=== PATIENT | male | born 1945 | race Caucasian/White ===

== ENCOUNTER 2018-08-13 10:46 | Emergency (ER) | payer OTHER, MEDICARE ==
[2018-08-13] MEDS ORDERED: ASPIRIN 81 MG PO STA (11:32)
--- NOTE | 2018-08-13 11:36 | ED ---
Chest Pain HPI - General Chief Complaint: Chest Pain Stated Complaint: dizziness Time Seen by Provider: 08/13/18 11:05 Source: patient, EMS, RN notes reviewed Mode of arrival: EMS Limitations: no limitations - History of Present Illness Initial Comments: 72-year-old male presents emergency Department from [facility] for abnormal EKG. Patient states he has no symptoms at this time. Patient states he was there for presurgical clearance. Patient states that they told him his EKG showed some abnormality's. Patient denies chest pain, shortness breath, headache, dizziness, nausea, vomiting. Patient states that he is a former smoker no history of , hypertension or diabetes. Patient states that he was told to 1991 that he had a IN but states he has had no stenting did have a heart cath at that time. Patient does take Lipitor for hyperlipidemia - Related Data Home Medications Medication Instructions Recorded Confirmed Atorvastatin [Lipitor] 10 mg PO HS 08/13/18 08/13/18 RX: Omeprazole 20 mg PO BID 08/13/18 08/13/18 Allergies Allergy/AdvReac Type Severity Reaction Status Date / Time Sulfa (Sulfonamide Allergy Unknown Verified 08/13/18 11:41 Antibiotics) Review of Systems ROS Statement: Those systems with pertinent positive or pertinent negative responses have been documented in the HPI. ROS Other: All systems not noted in ROS Statement are negative. Past Medical History Additional Past Medical History / Comment(s): neck cancer History of Any Multi-Drug Resistant Organisms: None Reported Past Surgical History: Heart Catheterization Additional Past Surgical History / Comment(s): cancer from neck removed, chemo and radiation Past Psychological History: No Psychological Hx Reported Smoking Status: Former smoker Past Alcohol Use History: Occasional Past Drug Use History: None Reported General Exam Limitations: no limitations General appearance: alert, in no apparent distress Head exam: Present: atraumatic, normocephalic, normal inspection Neck exam: Present: normal inspection. Absent: tenderness, meningismus, lymphadenopathy Respiratory exam: Present: normal lung sounds bilaterally. Absent: respiratory distress, wheezes, rales, rhonchi, stridor Cardiovascular Exam: Present: regular rate, normal rhythm, normal heart sounds. Absent: systolic murmur, diastolic murmur, rubs, gallop, clicks Course Vital Signs 08/13/18 08/13/18 08/13/18 10:56 11:05 11:30 Temperature 97.7 F Pulse Rate 66 66 59 L Respiratory 18 18 17 Rate Blood Pressure 183/100 168/97 165/91 O2 Sat by Pulse 96 97 97 Oximetry 08/13/18 08/13/18 08/13/18 11:40 11:50 12:00 Temperature Pulse Rate 65 60 Respiratory 18 18 Rate Blood Pressure 172/96 172/96 172/96 O2 Sat by Pulse 97 96 Oximetry 08/13/18 08/13/18 08/13/18 12:10 12:20 12:30 Temperature Pulse Rate 58 L 59 L 54 L Respiratory 16 18 18 Rate Blood Pressure 152/102 152/102 152/102 O2 Sat by Pulse 96 96 96 Oximetry 08/13/18 12:40 Temperature Pulse Rate 58 L Respiratory 16 Rate Blood Pressure 158/86 O2 Sat by Pulse 94 L Oximetry - Reevaluation(s) Reevaluation #1: 08/13/18 11:35 EKG was obtained cardiology is called Chest Pain MDM - MDM 72-year-old male presents emergency department for abnormal EKG. This is found at [facility]. Patient was sent emergency from via EMS. Patient had lab work, EKG, chest x-ray all unremarkable. EKG was sent to cardiology Dr. House did review it and felt that this was caused by early repolarization. Patient will be discharged at this time there is no need for admission or further cardiac workup. Disposition Clinical Impression: Electrocardiogram showing no acute ischemic changes Narrative: Early repolarization Disposition: HOME SELF-CARE Condition: Stable Instructions: Chest Pain (ED) Additional Instructions: Please return to the Emergency Department if symptoms worsen or any other concerns. Is patient prescribed a controlled substance at d/c from ED?: No Referrals: [facility] [Primary Care Provider] - 1-2 days Willian House MD [STAFF PHYSICIAN] - 1-2 days Time of Disposition: 13:28
[2018-08-13 12:08] LABS: Basophils % (A) 1 %; Eosinophils # (A) 0.3 k/uL (0-0.7); Eosinophils % (A) 5 %; HCT 48.8 % (39.0-53.0); HGB 16.5 gm/dL (13.0-17.5); Lymphocytes # (A) 0.8 k/uL (1.0-4.8); Lymphocytes % (A) 17 %; MCH 28.6 pg (25.0-35.0); MCHC 33.9 g/dL (31.0-37.0); MCV 84.3 fL (80.0-100.0); Mean Platelet Volume 8.7; Monocytes # (A) 0.3 k/uL (0-1.0); Monocytes % (A) 6 %; Neutrophils # (A) 3.4 k/uL (1.3-7.7); Neutrophils % (A) 70 %; Platelet Count 123 k/uL (150-450); RBC 5.79 m/uL (4.30-5.90); RDW 13.2 % (11.5-15.5); WBC 4.9 k/uL (3.8-10.6)
--- NOTE | 2018-08-13 12:18 | XR ---
EXAMINATION TYPE: XR chest 2V DATE OF EXAM: 08/13/2018 COMPARISON: NONE HISTORY: Shortness of breath and prior abnormal EKG. TECHNIQUE: Frontal and lateral views of the chest are obtained. FINDINGS: There is no focal air space opacity, pleural effusion, or pneumothorax seen. The cardiac silhouette size is within normal limits. The osseous structures are intact. Very minimal degenerati ve changes of the thoracic spine are noted. IMPRESSION: No acute cardiopulmonary process.
[2018-08-13 12:24] LABS: ALT 19 U/L (21-72); AST 31 U/L (17-59); Albumin 3.9 g/dL (3.5-5.0); Alkaline Phosphatase 65 U/L (38-126); Anion Gap 7 mmol/L; Blood Urea Nitrogen 15 mg/dL (9-20); Calcium 10.2 mg/dL (8.4-10.2); Carbon Dioxide 27 mmol/L (22-30); Chloride 106 mmol/L (98-107); Glucose 123 mg/dL (74-99); Magnesium 1.9 mg/dL (1.6-2.3); Sodium 140 mmol/L (137-145); Total Bilirubin 1.2 mg/dL (0.2-1.3)
[2018-08-13 12:30] LABS: INR 1.1 (<1.2); Prothrombin Time 10.3 sec (9.0-12.0)
[2018-08-13 12:34] LABS: Potassium 5.2 mmol/L (3.5-5.1)
[2018-08-13 12:46] LABS: Creatine Kinase 46 U/L (55-170)
[2018-08-13 13:00] LABS: Creatine Kinase MB 1.6 ng/mL (0.0-2.4); Troponin I <0.012 ng/mL (0.000-0.034)
[2018-08-13 13:49] VITALS: BP 154/84; PULSE 61; RESP 18; TEMP 98.4
== END 2018-08-13 13:49 | disposition home or self-care (01) ==
LOC: EC 10:46
DX: R07.9 Chest pain, unspecified (principal); R42 Dizziness and giddiness; E78.5 Hyperlipidemia, unspecified; I25.2 Old myocardial infarction; Z85.89 Personal history of malignant neoplasm of other organs and systems; Z92.21 Personal history of antineoplastic chemotherapy; Z95.818 Presence of other cardiac implants and grafts; Z87.891 Personal history of nicotine dependence; Z79.899 Other long term (current) drug therapy; Z88.2 Allergy status to sulfonamides
CPT/HCPCS: 36415; 71046; 80053; 82550; 82553; 83735; 84484; 85025; 85610; 85730; 93005; 99285

== ENCOUNTER 2021-08-23 07:38 | Day surgery (SDC) | payer OTHER ==
[2021-08-21 15:58] VITALS: BMI 24.0
[~2021-08-23 07:38] MED LIST: LACTATED RINGERS 1,000 ML IV SCH; LIDOCAINE 1% (10MG/ML) FOR IV START INTRADERMA PRN
[2021-08-23] MEDS ORDERED: LIDOCAINE 1% INJ 10MG/ML (20 ML MDV) ONE (08:39)
[2021-08-23] MEDS ORDERED: PROPOFOL 10 MG/ML 20 ML VIAL IV ONE (08:39)
[2021-08-23 08:40] LABS: Glucose,Whole Blood 120 mg/dL (75-99)
[2021-08-23 08:41] VITALS: PULSE 64; TEMP 97.9
--- NOTE | 2021-08-23 08:56 | P.PCN ---
Date of Procedure: 08/23/21 Procedure(s) Performed: BRIEF HISTORY: Patient is a 75-year-old pleasant male scheduled for an elective colonoscopy as a part of evaluation of positive cologuard PROCEDURE PERFORMED: Colonoscopy snare polypectomy. PREOPERATIVE DIAGNOSIS: Positive cologuard. IV sedation per Anesthesia. PROCEDURE: After informed consent was obtained, the patient, was brought into the endoscopy unit. IV sedation was administered by Anesthesia under continuous monitoring. Digital rectal examination was normal. Initially the Olympus CF-160 flexible video colonoscope was then inserted in the rectum, gradually advanced into the cecum without any difficulty. Careful examination was performed as the scope was gradually being withdrawn. Ileocecal valve and the appendiceal orifice were visualized and appeared normal. Prep was excellent. Mucosa of the cecum, ascending colon, transverse colon, descending colon, sigmoid colon, and rectum appeared normal. The proximal rectum there was a 7 mm polyp that was removed by snare polypectomy Retroflexion was performed in the rectum and no lesions were seen. The patient tolerated the procedure well. IMPRESSION: 7 mm proximal rectal polyp status post polypectomy Rest of the colon appeared normal RECOMMENDATIONS: Findings of this examination were discussed with the patient as well as his family.. He was advised to follow with the biopsy results. If the biopsy reveals adenoma he can have a repeat colonoscopy in 5 years
[2021-08-23 09:21] VITALS: BP 114/67; RESP 16
== END 2021-08-23 09:39 | disposition home or self-care (01) ==
LOC: ORWHC2ENDO 07:38
PROVIDERS: ATTEND Internal Medicine Gastroenterology
DX: D12.8 Benign neoplasm of rectum (principal); Z79.899 Other long term (current) drug therapy; I10 Essential (primary) hypertension; I38 Endocarditis, valve unspecified; Z85.89 Personal history of malignant neoplasm of other organs and systems; K21.9 Gastro-esophageal reflux disease without esophagitis; Z97.2 Presence of dental prosthetic device (complete) (partial); Z88.2 Allergy status to sulfonamides
CPT/HCPCS: 88305; 45385; J2001; J2704

== ENCOUNTER → 2023-05-06 | Day surgery (SDC) | payer OTHER ==
[~2023-05-06] MED LIST changes: +ACETAMINOPHEN TAB 500 MG TAB PO STA; +DEXAMETHASONE SOD PHOSPHATE 4 MG/ML 1 ML VIAL IV ONE; +DEXAMETHASONE SOD PHOSPHATE 4 MG/ML 1 ML VIAL ONE; +GLYCOPYRROLATE 0.2 MG/ML 2 ML VIAL ONE; +HEPARIN SODIUM,PORCINE/PF 5,000 UNIT/0.5 ML SYRINGE SQ PRN; +HYDROmorphone 0.5 MG/0.5 ML SYRINGE IVP PRN; +LACTATED RINGERS 1,000 ML IV ONE; +LIDOCAINE 2% INJ 20 MG/ML (2 ML VIAL) ONE; +LIDOCAINE 2%-EPI 1:100,000 20 ML VIAL SQ ONE; +MIDAZOLAM 2 MG/2 ML VIAL ONE; +NEOSTIGMINE 1 MG/ML 10 ML VIAL ONE; +ONDANSETRON 4 MG/2 ML VIAL IVP ONE; +PROPOFOL 10 MG/ML 20 ML VIAL IV ONE; +ROCURONIUM 10 MG/ML (5 ML VIAL) IV ONE; +ROPIVACAINE 5 MG/ML 30 ML VIAL ONE; +SODIUM CHLORIDE 0.9% (PF) 10 ML VIAL ONE; +SUCCINYLCHOLINE CHLORIDE 200 MG/10 ML VIAL IV ONE; +droPERidol 5 MG/2 ML VIAL IVP PRN; +ePHEDrine 50 MG/ML 1 ML VIAL ONE; +fentaNYL (PF) 50 MCG/ML 2 ML AMP ONE
--- NOTE | 2023-05-06 09:24 | P.GSHP ---
History of Present Illness H&P Date: 05/06/23 CHIEF COMPLAINT: Inguinal hernia, right. HISTORY OF PRESENT ILLNESS: The patient is a 77-year-old male who presents with a history of swelling and pain along the right groin. He has had previous repair. He's noted increased swelling including pain of the area. Now he presents for repair of his inguinal hernia. PAST MEDICAL HISTORY: Please see list. PAST SURGICAL HISTORY: Please see list. MEDICATIONS: Please see list. ALLERGIES: Please see list. SOCIAL HISTORY: No illicit drug use FAMILY HISTORY: No reports of Crohn disease or ulcerative colitis. REVIEW OF ORGAN SYSTEMS: CONSTITUTIONAL: No reports of fevers or chills. No reports of weight loss despite prior attempts. GI: Denies any blood in stools or constipation. PHYSICAL EXAM: VITAL SIGNS: Stable GENERAL: Well-developed pleasant male in no acute distress. HEENT: No scleral icterus. Extraocular movements grossly intact. Moist buccal mucosa. NECK: Supple without lymphadenopathy. CHEST: Unlabored respirations. Equal bilateral excursions. CARDIOVASCULAR: Regular rate and rhythm. Distal 2+ pulses. ABDOMEN: Soft, nondistended. No peritoneal signs. Palpable defect of the right groin. MUSCULOSKELETAL: No clubbing, cyanosis, or edema. ASSESSMENT: 1. Inguinal hernia, right PLAN: 1. Recommend proceeding with a robotic inguinal repair with mesh with possible bilateral approach. 2. Benefits and risks of surgical intervention was discussed including possibility of open technique. 3. DVT prophylaxis. 4. Antibiotic prophylaxis. 5. Non narcotic pain management including abdominal wall block described 6. Blood sugar glucose described. 7. Weight loss management described. 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 DM-no longer needs any meds for, HTN Rx before wgt loss from cancer dx. but no longer needed, "Leaky valve." History of Any Multi-Drug Resistant Organisms: None Reported Past Surgical History: Heart Catheterization, Hernia Repair, Joint Replacement, Orthopedic Surgery Additional Past Surgical History / Comment(s): Cancer from neck removed (also chemo and radiation). 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 Past Anesthesia/Blood Transfusion Reactions: No Reported Reaction Smoking Status: Former smoker - Past Family History Mother Family Medical History: Cancer Additional Family Medical History / Comment(s): breast cancer Medications and Allergies Home Medications Medication Instructions Recorded Confirmed Type Omeprazole 20 mg PO BID 08/13/18 05/03/23 History Rosuvastatin [Crestor] 10 mg PO HS 08/21/21 05/03/23 History Ibuprofen [Children's Ibuprofen 0 mg PO DIRECTED PRN 12/17/22 05/03/23 History Oral Susp] Allergies Allergy/AdvReac Type Severity Reaction Status Date / Time Sulfa (Sulfonamide Allergy Unknown Verified 05/03/23 09:33 Antibiotics)
[2023-05-06 11:48] LABS: Basophils % (A) 1 %; Eosinophils # (A) 0.2 k/uL (0-0.7); Eosinophils % (A) 5 %; HCT 48.6 % (39.0-53.0); HGB 15.8 gm/dL (13.0-17.5); Lymphocytes % (A) 22 %; MCH 26.8 pg (25.0-35.0); MCHC 32.6 g/dL (31.0-37.0); MCV 82.4 fL (80.0-100.0); Mean Platelet Volume 9.1; Monocytes # (A) 0.3 k/uL (0-1.0); Monocytes % (A) 7 %; Neutrophils # (A) 2.8 k/uL (1.3-7.7); Neutrophils % (A) 64 %; Platelet Count 124 k/uL (150-450); RDW 13.5 % (11.5-15.5); WBC 4.4 k/uL (3.8-10.6)
[2023-05-06 12:10] LABS: ALT 17 U/L (4-49); AST 20 U/L (17-59); African American GFR (CKD) >90 (>60 ml/min/1.73 sqM); Albumin 4.2 g/dL (3.5-5.0); Alkaline Phosphatase 69 U/L (38-126); Anion Gap 7 mmol/L; Blood Urea Nitrogen 19 mg/dL (9-20); Calcium 10.2 mg/dL (8.4-10.2); Carbon Dioxide 29 mmol/L (22-30); Chloride 103 mmol/L (98-107); Glucose 122 mg/dL (74-99); Non-African American GFR(CKD) 88 (>60 ml/min/1.73 sqM); Potassium 4.7 mmol/L (3.5-5.1); Sodium 139 mmol/L (137-145); Total Bilirubin 0.8 mg/dL (0.2-1.3); Total Protein 7.2 g/dL (6.3-8.2)
[2023-05-06] MEDS: MIDAZOLAM 2 MG/2 ML VIAL IVP ONE ×2 (12:13→12:25)
[2023-05-06] MEDS: fentaNYL (PF) 50 MCG/ML 2 ML AMP IVP ONE ×2 (12:13→12:25)
--- NOTE | 2023-05-06 13:34 | P.ANPRN ---
Procedure Note - Anesthesia - Nerve Block Performed Bilateral Erector Spinae Single Time Out Performed: Yes Date of Procedure: 05/06/23 Procedure Start Time: 12:24 Procedure Stop Time: 12:33 Location of Patient: PreOp Indication: Requested by Surgeon Sedation Type: Sedate with meaningful contact maintained Preparation: Sterile Prep Position: Prone Needle Types: Pajunk Needle Gauge: 21 Ultrasound used to visualize needle placement: Yes Ultrasound used to observe medication spread: Yes Injectate: 0.5% Ropivacaine (see comment for volume) (15 ml + 15 ml NS + 4 mg dexamethason per side) Blood Aspirated: No Pain Paresthesia on Injection Noted: No Resistance on Injection: Normal Image Stored and Saved: Yes Events: Uneventful and Well Tolerated
--- NOTE | 2023-05-06 16:43 | P.OP ---
Date of Procedure: 05/06/23 Description of Procedure: SURGEON: CARROL CORONA MD PREOPERATIVE DIAGNOSES: 1. Recurrent right inguinal hernia 2. History of abnormal EKG 3. Coronary artery disease 4. History of neck cancer, left POSTOPERATIVE DIAGNOSES: 1. Right inguinal pain 2. History of abnormal EKG 3. Coronary artery disease 4. History of neck cancer, left OPERATION: 1. Robotic-assisted da Bradley Xi laparoscopic right inguinal hernia repair ABORTED for diagnostic laparoscopy ANESTHESIA: General with local anesthetic ESTIMATED BLOOD LOSS: 1 mL. SPECIMENS REMOVED: None COMPLICATIONS: None. FINDINGS: 1. No recurrent right inguinal hernia 2. No hernias along the left groin identified. 3. Sigmoid colon adherent to the left pelvic wall 4. Palpable mass along right groin possible mesh versus lymph node INDICATIONS: The patient is a 77-year-old gentleman who presents with history of right groin pain. He had prior right inguinal hernia repair and reports [place] for hernia. Now presents for definitive surgical intervention. Laparoscopic versus open and robotic approaches were discussed. Benefits and risks including bleeding, infection, injury to the vas deferens as well as sterility and chronic groin pain were reviewed. Placement of mesh was also described. Informed consent was obtained. DESCRIPTION: In the preoperative area, the patient was marked with indelible marker along the inguinal hernia. The patient was brought to the operating room and initially laid in supine position. The abdomen had been prepped and draped in standard sterile fashion. Ioban draping was also placed. Prior to incision, a timeout protocol was confirmed with surgical team regarding patient's name including procedures to be performed and location along the right groin. Initial positioning for the robotic assisted ports were selected whereby 20 cm superior to the target anatomy, 0 degree 5 mm laparoscopic trocar entry was performed at the left upper quadrant. The abdomen was insufflated to 15 mmHg which he had tolerated well. Diagnostic laparoscopy demonstrated no recurrent right inguinal hernia. Along the left groin, no initial left inguinal hernia. Sigmoid colon adhered along the pelvis. Patient was Valsalva without any recurrent hernias identified. The right groin was palpated with a mass of his prior mesh versus enlarged lymph node identified. (I exited and returned to the case to find the patient's who was not available via over the telephone or in person.) Due to lack of findings for hernia, procedure was aborted. Insufflation was released from the abdominal cavity and all instruments were removed from the abdominal cavity. The rest of incisions were reapproximated using 4-0 Monocryl in a running subcuticular fashion. Incisions were cleansed using dilute hydrogen peroxide. Liquid glue was applied to the skin. At the end of the procedure, the needle, sponge and instrument counts had been verified correct by the quality assurance technician. The patient had tolerated the procedure well and was taken to the postanesthesia care unit in stable condition. Plan - Discharge Summary Discharge Rx Participant: No New Discharge Prescriptions: New Ibuprofen Oral Susp [Motrin Oral Susp] 600 mg PO Q8HR #480 ml Continue Omeprazole 20 mg PO BID Rosuvastatin [Crestor] 10 mg PO HS Ibuprofen [Children's Ibuprofen Oral Susp] 0 mg PO DIRECTED PRN PRN Reason: Pain Discharge Medication List Omeprazole 20 mg PO BID 08/13/18 [History] Rosuvastatin [Crestor] 10 mg PO HS 08/21/21 [History] Ibuprofen [Children's Ibuprofen Oral Susp] 0 mg PO DIRECTED PRN 12/17/22 [History] Ibuprofen Oral Susp [Motrin Oral Susp] 600 mg PO Q8HR #480 ml 05/06/23 [Rx] Follow up Appointment(s)/Referral(s): Carrol Corona MD [STAFF PHYSICIAN] - 05/21/23 11:45 am Patient Instructions/Handouts: Exploratory Laparoscopy (DC) Discharge Disposition: HOME SELF-CARE
[2023-05-06 16:52] VITALS: RESP 16; TEMP 97
[2023-05-06 18:37] VITALS: BP 142/73; PULSE 71
== END | disposition home or self-care (01) ==
LOC: OR 10:50
PROVIDERS: ATTEND Surgery Plastic and Reconstructive Surgery
DX: Z53.8 Procedure and treatment not carried out for other reasons (principal); R19.09 Other intra-abdominal and pelvic swelling, mass and lump; I25.10 Atherosclerotic heart disease of native coronary artery without angina pectoris; E11.9 Type 2 diabetes mellitus without complications; E78.5 Hyperlipidemia, unspecified; K21.9 Gastro-esophageal reflux disease without esophagitis; M19.90 Unspecified osteoarthritis, unspecified site; Z85.828 Personal history of other malignant neoplasm of skin; Z92.21 Personal history of antineoplastic chemotherapy; Z92.3 Personal history of irradiation; Z87.19 Personal history of other diseases of the digestive system; Z87.891 Personal history of nicotine dependence; Z79.1 Long term (current) use of non-steroidal anti-inflammatories (NSAID); Z79.899 Other long term (current) drug therapy; Z88.2 Allergy status to sulfonamides
CPT/HCPCS: 49320; 64999; 80053; 85025; J2250; J0330; J1100; J2710; J0690; J2405; J3010; J2795; J2704; J1644; J2001

== ENCOUNTER 2023-09-25 06:48 | Day surgery (SDC) | payer OTHER ==
[2023-09-19 16:28] VITALS: BMI 23.6
--- NOTE | 2023-09-24 08:43 | P.HPOR ---
History of Present Illness H&P Date: 09/24/23 Subjective: This is a 77 year old male that presents today for initial evaluation regarding a several month history of progressively worsening left hand paresthesias in the thumb, index, middle and ring fingers. He has tried NSAIDs and rest without relief and had an EMG/NCV performed recently. He notes the numbness is constant in the ring finger and is often present in the thumb, index and middle finger throughout the day. The patient denies any inciting event or neck pain. He has had shoulder surgery for rotator cuff injury and neck surgery for cancer in the past. He has symptoms only from the wrist to the fingertips. Physical Examination: LUE: AIN/PIN/Radial/Ulnar/Median motor intact. Radial/Ulnar/Median SILT. 2+/4 Radial/Ulnar pulses palpated. 5/5 APB, 5/5 FDI. Negative Finkelsteins, negative CMC grind, positive Durkan's compression. EMG/NCV: EMG/NCV performed on 08/02/23 demonstrates evidence of left C7/8 nerve root irritation and moderate left carpal tunnel syndrome. Imaging: X-rays of the left hand 3V taken in office today demonstrate mild thumb CMC arthritis Impression: 1.) Left carpal tunnel syndrome 2.) Left C7/8 nerve root irritation Plan: Diagnosis and treatment options were discussed with the patient. The patient has failed conservative treatment and would like to pursue a left endoscopic vs open carpal tunnel release. Risks and benefits of surgery including bleeding, infection, damage to surrounding tissue, need for further surgery, possible need to convert to open procedure, residual numbness were discussed and the patient wished to go forward with surgery. We discussed due to overlapping EMG findings with C7/8 nerve root irritation he may still have residual numbness in the hand and that the surgery would only address the carpal tunnel syndrome symptoms and he expressed understanding. 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 , diabetes and htn resolved with wt loss from cancer., "Leaky heart valve." , skin cancer., states fingers numb left hand History of Any Multi-Drug Resistant Organisms: None Reported Past Surgical History: Heart Catheterization, Hernia Repair, Joint Replacement, Orthopedic Surgery Additional Past Surgical History / Comment(s): Cancer from neck removed . 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 Past Anesthesia/Blood Transfusion Reactions: No Reported Reaction Past Psychological History: No Psychological Hx Reported Smoking Status: Former smoker Past Alcohol Use History: Daily Additional Past Alcohol Use History / Comment(s): Quit smoking 1990. Drinks 7 oz of beer daily Past Drug Use History: None Reported - Past Family History Mother Family Medical History: Cancer Additional Family Medical History / Comment(s): breast cancer Medications and Allergies Home Medications Medication Instructions Recorded Confirmed Type Omeprazole 20 mg PO BID 08/13/18 09/19/23 History Rosuvastatin [Crestor] 10 mg PO HS 08/21/21 09/19/23 History Allergies Allergy/AdvReac Type Severity Reaction Status Date / Time Sulfa (Sulfonamide Allergy Severe Swelling Verified 09/19/23 15:54 Antibiotics) Physical Examination Osteopathic Statement: *. No significant issues noted on an osteopathic structural exam other than those noted in the History and Physical/Consult.
[~2023-09-25 06:48] MED LIST changes: -ACETAMINOPHEN TAB 500 MG TAB PO STA; -DEXAMETHASONE SOD PHOSPHATE 4 MG/ML 1 ML VIAL ONE; -GLYCOPYRROLATE 0.2 MG/ML 2 ML VIAL ONE; -HEPARIN SODIUM,PORCINE/PF 5,000 UNIT/0.5 ML SYRINGE SQ PRN; -LACTATED RINGERS 1,000 ML IV ONE; -LIDOCAINE 2% INJ 20 MG/ML (2 ML VIAL) ONE; -LIDOCAINE 2%-EPI 1:100,000 20 ML VIAL SQ ONE; +MIDAZOLAM 2 MG/2 ML VIAL IV PRN; -MIDAZOLAM 2 MG/2 ML VIAL ONE; -NEOSTIGMINE 1 MG/ML 10 ML VIAL ONE; -PROPOFOL 10 MG/ML 20 ML VIAL IV ONE; +Pre Op ABX Message 1 EACH MISC MISCELLANE ONE; -ROCURONIUM 10 MG/ML (5 ML VIAL) IV ONE; -ROPIVACAINE 5 MG/ML 30 ML VIAL ONE; -SODIUM CHLORIDE 0.9% (PF) 10 ML VIAL ONE; -SUCCINYLCHOLINE CHLORIDE 200 MG/10 ML VIAL IV ONE; -droPERidol 5 MG/2 ML VIAL IVP PRN; -ePHEDrine 50 MG/ML 1 ML VIAL ONE; -fentaNYL (PF) 50 MCG/ML 2 ML AMP ONE
[2023-09-25] MEDS ORDERED: LACTATED RINGERS 1,000 ML IV ONE (07:29)
[2023-09-25 07:33] VITALS: TEMP 97.4
[2023-09-25 07:35] LABS: Glucose,Whole Blood 124 mg/dL (70-110)
[2023-09-25] MEDS ORDERED: MIDAZOLAM 2 MG/2 ML VIAL ONE (07:54)
[2023-09-25] MEDS ORDERED: PROPOFOL 10 MG/ML 20 ML VIAL IV ONE (07:54)
[2023-09-25] MEDS ORDERED: ePHEDrine 50 MG/ML 1 ML VIAL ONE (07:54)
[2023-09-25] MEDS ORDERED: fentaNYL (PF) 50 MCG/ML 2 ML AMP ONE (07:54)
[2023-09-25] MEDS ORDERED: LIDOCAINE 1% INJ 10MG/ML (20 ML MDV) ONE (07:54)
[2023-09-25] MEDS ORDERED: LIDOCAINE 2% INJ 20 MG/ML SQ ONE (08:00)
[2023-09-25] MEDS ORDERED: BUPIVACAINE (PF) 0.5% 30 ML VIAL SQ ONE (08:00)
--- NOTE | 2023-09-25 08:13 | P.OP ---
Date of Procedure: 09/25/23 Preoperative Diagnosis: Left carpal tunnel syndrome Postoperative Diagnosis: Left carpal tunnel syndrome Procedure(s) Performed: Left endoscopic carpal tunnel release Anesthesia: MAC Surgeon: Rafa Majano Estimated Blood Loss (ml): 0 Pathology: none sent Condition: stable Disposition: PACU Description of Procedure: This is a 77 year old male who presents today for a left endoscopic carpal tunnel release after having failed conservative treatment in the past. Risks and benefits of surgery were discussed with the patient including bleeding, damage to surrounding tissue, infection, need to convert to open procedure, need for further surgery as well as risks of anesthesia including pulmonary embolism and even and the patient wished to proceed with surgical intervention. The patients was seen in the pre-operative area by myself. Consent and H&P were completed and updated. The correct extremity was marked in the pre-operative area by myself and all other questions were answered. Operative Narrative: The patient was brought to the operating room by the department of anesthesia. They remained on the portable stretcher and a rolling hand table was brought to the side of the operative extremity. Pre-operative time out was performed indicating the correct patient, procedure and laterality. All in the room agreed. The patient was then drifted off to sleep by the department of anesthesia. MAC anesthesia was utilized and a 50:50 mixture of 1% Lidocaine and 0.5% bupivacaine was injected into the subcutaneous tissues of the palmar skin, 8ccs total. A nonsterile tourniquet was then applied to the operative extremity and the left upper extremity was then prepped and draped in normal sterile fashion. The operative extremity was the exsanguinated with an esmarch bandage and the tourniquet was inflated to 250mmHg. 15 blade scalpel was utilized to make a transverse incision on the palmar skin just ulnar to the palmaris longus tendon at the level of the distal wrist crease. Ragnell retractor was then placed radially and blunt dissection was performed to reveal the distal forearm fascia. This was lifted with fine Balwinder pick ups and Littler tenotomy scissors were then used to open the forearm fascia transversely and a double skin hook was then placed. Hamate finder was placed into the carpal tunnel and then sequential sized dilators were inserted followed by the synovial elevator to separate the flexor tenosynovium from the undersurface of the transverse carpal ligament and a washboard texture was felt. The MicroAire endoscopic carpal tunnel release system gun was the then inserted into the carpal tunnel hugging the deep portion of the transverse carpal ligament in line with the base of the ring finger. Transverse fibers of the ligament were directly visualized. Pressure was applied on the palm to reveal the distal extent of the transverse carpal ligament. The blade was then deployed and the distal half of the transverse carpal ligament was released. The scope was then brought distal again and remaining transverse fibers were incised with the blade. The proximal half of the transverse carpal ligament was then divided and again the scope was advanced distal and remaining transverse fibers were incised with the blade. The radial and ulnar leaflets were directly visualized and mobile consistent with complete release. Tenotomy scissors were then utilized to release the remaining distal forearm fascia under direct visualization taking care to preserve the palmar cutaneous branch of the median nerve. Skin closure was performed with interrupted 4-0 Monocryl suture followed by steri strips. Sterile dressing was applied consisting 4x4s, Webril, and an belinda bandage. Tourniquet was let down and the hand immediately was well perfused. The patient was then woken by the department of anesthesia and transferred to PACU in stable condition. Rafa Majano D.O. Orthopedic Hand/Upper Extremity Surgeon
[2023-09-25 08:44] VITALS: BP 128/70; PULSE 56; RESP 14
== END 2023-09-25 09:05 | disposition home or self-care (01) ==
LOC: OR 06:48
PROVIDERS: ATTEND Orthopaedic Surgery Hand Surgery
DX: G56.02 Carpal tunnel syndrome, left upper limb (principal); E78.5 Hyperlipidemia, unspecified; E11.9 Type 2 diabetes mellitus without complications; K21.9 Gastro-esophageal reflux disease without esophagitis; F10.90 Alcohol use, unspecified, uncomplicated; M19.90 Unspecified osteoarthritis, unspecified site; Z98.890 Other specified postprocedural states; Z87.891 Personal history of nicotine dependence; Z80.3 Family history of malignant neoplasm of breast; Z88.2 Allergy status to sulfonamides; Z79.899 Other long term (current) drug therapy
CPT/HCPCS: 29848; J2001 ×2; J2250; J1100; J2405; J3010; J2704; J0665

== ENCOUNTER 2024-07-11 11:51 | Emergency (ER) | payer OTHER ==
[2024-07-11 12:09] VITALS: TEMP 97.8
--- NOTE | 2024-07-11 12:21 | ED ---
Extremity Problem HPI - General Chief complaint: Extremity Problem,Nontraumatic Stated complaint: L ankle pain/swelling Time Seen by Provider: 07/11/24 12:11 Source: patient, RN notes reviewed Mode of arrival: wheelchair Limitations: no limitations - History of Present Illness Initial comments: This is a 78-year-old male who presents to the emergency department for left ankle pain and swelling. Patient states that when he woke up this morning he had a lot of pain around his ankle with associated swelling and warmth. Denies any injuries or history of similar problems in the past. The pain has since started to shoot up his leg. He took ibuprofen without any substantial relief. He is having difficulty ambulating as well. Denies any fevers or chills. MD Complaint: extremity pain, extremity swelling - Related Data Home Medications Medication Instructions Recorded Confirmed Omeprazole 20 mg PO BID 08/13/18 09/19/23 Rosuvastatin [Crestor] 10 mg PO HS 08/21/21 09/19/23 Previous Rx's Medication Instructions Recorded Naproxen 550 mg PO BID PRN #473 ml 07/11/24 cephALEXin [Keflex Oral Susp] 10 ml PO Q6H 7 Days #280 ml 07/11/24 Allergies Allergy/AdvReac Type Severity Reaction Status Date / Time Sulfa (Sulfonamide Allergy Severe Swelling Verified 07/11/24 12:09 Antibiotics) Review of Systems ROS Statement: Those systems with pertinent positive or pertinent negative responses have been documented in the HPI. ROS Other: All systems not noted in ROS Statement are negative. 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 , diabetes and htn resolved with wt loss from cancer., "Leaky heart valve." , skin cancer., states fingers numb left hand History of Any Multi-Drug Resistant Organisms: None Reported Past Surgical History: Heart Catheterization, Hernia Repair, Joint Replacement, Orthopedic Surgery Additional Past Surgical History / Comment(s): Cancer from neck removed . 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 Past Anesthesia/Blood Transfusion Reactions: No Reported Reaction Past Psychological History: No Psychological Hx Reported Smoking Status: Former smoker Past Alcohol Use History: Daily Past Drug Use History: None Reported - Past Family History Mother Family Medical History: Cancer Additional Family Medical History / Comment(s): breast cancer General Exam Limitations: no limitations General appearance: alert, in no apparent distress Head exam: Present: atraumatic, normocephalic, normal inspection Respiratory exam: Present: normal lung sounds bilaterally. Absent: respiratory distress, wheezes, rales, rhonchi, stridor Cardiovascular Exam: Present: regular rate, normal rhythm, normal heart sounds. Absent: systolic murmur, diastolic murmur, rubs, gallop, clicks Extremities exam: Present: other (Tenderness, swelling, and warmth around the left ankle with tenderness extending up into the calf. Plus DP and PT pulses.) Neurological exam: Present: alert, oriented X3, CN II-XII intact Psychiatric exam: Present: normal affect, normal mood Course Vital Signs 07/11/24 07/11/24 12:03 14:24 Temperature 97.8 F Pulse Rate 63 57 L Respiratory 16 18 Rate Blood Pressure 178/77 162/92 O2 Sat by Pulse 98 97 Oximetry Medical Decision Making - Medical Decision Making This is a 78-year-old male who presents to the emergency department for left foot and ankle pain and swelling. Was pt. sent in by a medical professional or institution? @ -No Did you speak to anyone other than the patient for history? @ -No Did you review nursing and triage notes? @ -Yes, and I agree, it is accurate with regards to the patient's symptoms. Were old charts reviewed? @ -No Differential Diagnosis? @ -Differential Musculoskeletal: Muscular strain, contusion, ligament sprain, fracture, arthritis, septic arthritis, bursitis, cellulitis, muscle spasm, nerve compression, DVT, arterial occlusion, herpes zoster, electrolyte abnormality, tumor.... This is not meant to be in all inclusive list EKG interpreted by me (3pts min.)? @ -Not obtained X-rays interpreted by me (1pt min.)? @ -X-ray of the left ankle obtained. My interpretation identifies no acute fractures. CT interpreted by me (1pt min.)? @ -Not obtained U/S interpreted by me (1pt. min.)? @ -Duplex ultrasound of the left lower extremity obtained. My interpretation identifies no evidence of a DVT. What testing was considered but not performed? (CT, X-rays, U/S, labs)? Why? @ -None What meds were considered but not given? Why? @ -None Did you discuss the management of the patient with other professionals? @ -No Did you reconcile home meds? @ -No Was smoking cessation discussed for >3mins.? @ -No Was critical care preformed (if so, how long)? @ -No Were there social determinants of health that impacted care today? How? (Homelessness, low income, unemployed, alcoholism, drug addiction, transportation, low edu. Level, literacy, decrease access to med. care, custodial, rehab)? @ -No Was there de-escalation of care discussed even if they declined? (Discuss DNR or withdrawal of care, Hospice)? @ -No What co-morbidities impacted this encounter? (DM, HTN, Smoking, COPD, CAD, Cancer, CVA, Hep., AIDS, mental health diagnosis, sleep apnea, morbid obesity)? @ -DM, osteoarthritis Was patient admitted / discharged? @ -Discharged. Lab work unremarkable. X-ray of the left ankle demonstrates subcutaneous soft tissue swelling without any other acute process. Duplex ultrasound of the left lower extremity obtained revealing no evidence of a DVT. Symptoms likely related to cellulitis versus inflammatory arthritis. He did have some erythema and warmth, and we will put him on antibiotics to cover for any infectious component as well. He was given 1g of Rocephin in the emergency department. Prescription for Keflex and naproxen provided for management of infection versus inflammatory arthritis. These were prescribed in liquid form due to patient's difficulty with salivary glands from cancer treatment. Advised close follow-up with his PCP. Patient discharged home in stable condition. Case discussed with ED attending Dr. Clark. Return precautions reviewed in depth, the patient is instructed to return to the emergency department with any new, worsening, or concerning symptoms. Patient verbalized understanding. Undiagnosed new problem with uncertain prognosis? @ -None Drug Therapy requiring intensive monitoring for toxicity (Heparin, Nitro, Insulin, Cardizem)? @ -None Were any procedures done? @ -None Diagnosis/symptom? @ -Inflammatory arthritis of the left ankle, cellulitis Acute, or Chronic, or Acute on Chronic? @ -Acute Uncomplicated (without systemic symptoms) or Complicated (systemic symptoms)? @ -Uncomplicated Side effects of treatment? @ -None Exacerbation, Progression, or Severe Exacerbation] @ -Not applicable Poses a threat to life or bodily function? @ -No - Lab Data Result diagrams: 07/11/24 12:33 07/11/24 12:33 Lab Results 07/11/24 07/11/24 07/11/24 Range/Units 12:33 12:33 12:33 WBC 7.8 (3.8-10.6) k/uL RBC 5.30 (4.30-5.90) m/uL Hgb 14.9 (13.0-17.5) gm/dL Hct 44.7 (39.0-53.0) % MCV 84.2 (80.0-100.0) fL MCH 28.1 (25.0-35.0) pg MCHC 33.3 (31.0-37.0) g/dL RDW 13.2 (11.5-15.5) % Plt Count 146 L (150-450) k/uL MPV 8.6 Neutrophils % 84 % Lymphocytes % 8 % Monocytes % 5 % Eosinophils % 2 % Basophils % 0 % Neutrophils # 6.5 (1.3-7.7) k/uL Lymphocytes # 0.6 L (1.0-4.8) k/uL Monocytes # 0.4 (0-1.0) k/uL Eosinophils # 0.2 (0-0.7) k/uL Basophils # 0.0 (0-0.2) k/uL Sodium 136 L (137-145) mmol/L Potassium 4.6 (3.5-5.1) mmol/L Chloride 104 (98-107) mmol/L Carbon Dioxide 27 (22-30) mmol/L Anion Gap 5 mmol/L BUN 15 (9-20) mg/dL Creatinine 0.77 (0.66-1.25) mg/dL Est GFR (CKD-EPI)AfAm >90 (>60 ml/min/1.73 sqM) Est GFR (CKD-EPI)NonAf 88 (>60 ml/min/1.73 sqM) Glucose 145 H (74-99) mg/dL Plasma Lactic Acid Kar 1.2 (0.7-2.0) mmol/L Calcium 10.0 (8.4-10.2) mg/dL Total Bilirubin 0.9 (0.2-1.3) mg/dL AST 17 (17-59) U/L ALT 12 (4-49) U/L Alkaline Phosphatase 71 (38-126) U/L C-Reactive Protein <0.5 (<1.0) mg/dL Total Protein 6.6 (6.3-8.2) g/dL Albumin 3.9 (3.5-5.0) g/dL - Radiology Data Radiology results: report reviewed, image reviewed Disposition Clinical Impression: 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 Take the antibiotic as prescribed for 7 days. Take the naproxen twice daily as needed for pain relief. You can take this with Tylenol as well. You can also try applying ice to see if that offers you any benefit. Follow up with your primary care provider in 1-2 days. Prescriptions: cephALEXin [Keflex Oral Susp] 10 ml PO Q6H 7 Days #280 ml Naproxen 550 mg PO BID PRN #473 ml PRN Reason: Pain Is patient prescribed a controlled substance at d/c from ED?: No Referrals: [facility],Clinic [Primary Care Provider] - 1-2 days Time of Disposition: 13:54
[2024-07-11] MEDS: MORPHINE SULFATE 4 MG/ML SYRINGE IM STA (12:38)
[2024-07-11] MEDS: KETOROLAC 15 MG/ML 1 ML VIAL IVP STA (12:39)
[2024-07-11] MEDS: MORPHINE SULFATE 4 MG/ML SYRINGE IVP STA (12:39)
[2024-07-11] MEDS: DEXAMETHASONE SOD PHOSPHATE 10 MG/ML 1 ML VIAL IVP STA (12:39)
[2024-07-11 12:55] LABS: Basophils % (A) 0 %; Eosinophils # (A) 0.2 k/uL (0-0.7); Eosinophils % (A) 2 %; HCT 44.7 % (39.0-53.0); HGB 14.9 gm/dL (13.0-17.5); Lymphocytes # (A) 0.6 k/uL (1.0-4.8); Lymphocytes % (A) 8 %; MCH 28.1 pg (25.0-35.0); MCHC 33.3 g/dL (31.0-37.0); MCV 84.2 fL (80.0-100.0); Mean Platelet Volume 8.6; Monocytes # (A) 0.4 k/uL (0-1.0); Monocytes % (A) 5 %; Neutrophils # (A) 6.5 k/uL (1.3-7.7); Neutrophils % (A) 84 %; Platelet Count 146 k/uL (150-450); RDW 13.2 % (11.5-15.5); WBC 7.8 k/uL (3.8-10.6)
--- NOTE | 2024-07-11 13:13 | XR ---
EXAMINATION TYPE: XR ankle complete LT DATE OF EXAM: 07/11/2024 12:56 PM CLINICAL INDICATION: Male, 78 years old with history of Pain and swelling; COMPARISON: None TECHNIQUE: XR ankle complete LT; ankle is imaged in frontal, lateral and oblique projections. FINDINGS: There is no evidence of acute osseous pathology. No evidence of subluxation or dislocation. Kager's fat pad is intact. Mild soft tissue swelling around the ankle. No radiopaque foreign bodies are ident ified. IMPRESSION: 1. No evidence of acute fracture. 2. Subcutaneous swelling around the ankle likely secondary to underlying soft tissue injury. [facility], , 07/11/2024 1:10 PM
[2024-07-11 13:21] LABS: ALT 12 U/L (4-49); AST 17 U/L (17-59); African American GFR (CKD) >90 (>60 ml/min/1.73 sqM); Albumin 3.9 g/dL (3.5-5.0); Alkaline Phosphatase 71 U/L (38-126); Anion Gap 5 mmol/L; Blood Urea Nitrogen 15 mg/dL (9-20); C Reactive Protein <0.5 mg/dL (<1.0); Carbon Dioxide 27 mmol/L (22-30); Chloride 104 mmol/L (98-107); Glucose 145 mg/dL (74-99); Non-African American GFR(CKD) 88 (>60 ml/min/1.73 sqM); Potassium 4.6 mmol/L (3.5-5.1); Sodium 136 mmol/L (137-145); Total Bilirubin 0.9 mg/dL (0.2-1.3); Total Protein 6.6 g/dL (6.3-8.2)
--- NOTE | 2024-07-11 13:38 | US ---
EXAMINATION TYPE: US venous doppler duplex LE LT DATE OF EXAM: 07/11/2024 12:16 PM COMPARISON: NONE CLINICAL INDICATION: Male, 78 years old with history of Pain and swelling; Left lower leg pain and sw elling SIDE PERFORMED: Left TECHNIQUE: The lower extremity deep venous system is examined utilizing real time linear array sonog luisa with graded compression, doppler sonography and color-flow sonography. VESSELS IMAGED: Common Femoral Vein Deep Femoral Vein Greater Saphenous Vein * Femoral Vein Popliteal Vein Small Saphenous Vein * Proximal Calf Veins (* superficial vessels) Left Leg: Appears negative for DVT IMPRESSION: Grayscale, color doppler, spectral doppler imaging performed of the deep veins of the lo wer extremities. There is normal flow, compressibility, vascular waveforms. [facility], , 07/11/2024 1:36 PM
[2024-07-11] MEDS: ACET/COD 300 MG/30 MG STARTER PACK 6 TAB BTL PO STA (14:14)
[2024-07-11] MEDS: cefTRIAXone IN SWFI 1,000 MG/10 ML SYRINGE IVP STA (14:15)
[2024-07-11 14:25] VITALS: BP 162/92; PULSE 57; RESP 18
[2024-07-11 23:41] LABS: Erythrocyte Sedimentation Rate 14 mm/Hr (0-20)
== END 2024-07-11 14:25 | disposition home or self-care (01) ==
LOC: EC 11:51
CPT/HCPCS: 36415; 80053; 83605; 85025; 85652; 86140; 96374; 96375; 99283